=== PATIENT | female | born 1965 | race Two or more races ===

== ENCOUNTER 2021-09-12 07:37 | Inpatient (IN) | payer OTHER ==
[~2021-09-12] VITALS: Ht 157.5 cm; Wt 81.8 kg
[~2021-09-12 07:37] MED LIST: BISO5TAB8 PO; LOSA100T14 PO; OXYC1TAB15 PO; [UNRECOGNIZED DRUG - CODE] PO
[2021-09-12] MEDS ORDERED: IV NORMAL SALINE 1000ML BAG 1,000 ML IV ONE (08:00)
[2021-09-12] MEDS ORDERED: ONDANSETRON PF 4 MG/2 ML VIAL. IVP ONE ×3 (08:15→13:15)
[2021-09-12] MEDS ORDERED: fentaNYL PF VIAL 100 MCG/2 ML VIAL IV ONE ×2 (08:15→10:15)
[2021-09-12 08:41] LABS: BASO % 1 % (0-3); EOS # 0.2 x10^3/uL (0.0-0.7); EOS % 3 % (0-3); HEMOGLOBIN 13.2 g/dL (12.0-15.5); LYMPH # 1.4 x10^3/uL (1.0-4.8); LYMPH % 22 % (24-48); MEAN CORPUSCULAR HEMOGLOBIN 27 pg (25-35); MEAN CORPUSCULAR HGB CONC 33 g/dL (31-37); MEAN CORPUSCULAR VOLUME 82 fL (79-100); MONO # 0.6 x10^3/uL (0.0-1.1); MONO % 10 % (0-9); NEUT # 4.3 x10^3/uL (1.8-7.7); NEUT % 65 % (31-73); PLATELET COUNT 230 x10^3/uL (140-400); RED BLOOD COUNT 4.88 x10^6/uL (3.50-5.40); RED CELL DISTRIBUTION WIDTH 13.8 % (11.5-14.5); WHITE BLOOD COUNT 6.7 x10^3/uL (4.0-11.0)
[2021-09-12] MEDS ORDERED: IOHEXOL 300 MG/ML 100ML VIAL. IV ONE (09:00)
[2021-09-12] MEDS ORDERED: IOHEXOL 240 MG/ML 50ML VIAL. PO ONE (09:00)
--- NOTE | 2021-09-12 09:01 | PHYS DOC ---
Past Medical History Past Medical History: Hypothyroid, Pancreatitis Past Surgical History: Cholecystectomy, Hysterectomy, Other Additional Past Surgical Histo: THYROIDECTOMY, CHOLECYSTECTOMY 09/09/2021 Smoking Status: Never Smoker Alcohol Use: None Drug Use: None General Adult EDM: Chief Complaint: CHEST PAIN HPI: HPI: Patient is a 56 year old female who presents with abdominal pain since this morning. Patient recently underwent cholecystectomy at [facility] on 09/09/21. She had a normal post-operative course until this morning when she woke up with increased RUQ pain, nausea, and vomiting. Patient reports the pain radiates into her chest, back, and right shoulder. She has been eating/drinking normal since her surgery. Her last meal was yesterday afternoon (apple). She is not passing gas but had a bowel movement yesterday which she said was normal. Reports a sensation that she needs to belch but unable. Reports her pain as 9/10. Denies blood in the stool or diarrhea. Review of Systems: Review of Systems: Review of systems constitutional: Denies fever or chills Eyes: Denies redness or eye pain HENT: Denies nasal congestion or sore throat Respiratory: Denies cough or shortness of breath Cardiovascular: Reports chest pain; Denies palpitations GI: Reports abdominal pain, nausea, or vomiting; Denies melena or hematochezia : Denies dysuria or hematuria Musculoskeletal: Denies back pain or joint pain Integument: Denies rash or skin lesions Neurologic: Denies headache, focal weakness or sensory changes Complete systems were reviewed and found to be within normal limits, except as documented in this note. Heart Score: C/O Chest Pain: Yes HEART Score for Chest Pain: HEART Score for Chest Pain Response (Comments) Value History Slighlty/Non-Suspicious 0 ECG Normal 0 Age >45 - < 65 1 Risk Factors 1 or 2 Risk Factors 1 Total 2 Risk Factors: Risk Factors: DM, Current or recent (<one month) smoker, HTN, HLP, family history of CAD, obesity. Risk Scores: Score 0 - 3: 2.5% MACE over next 6 weeks - Discharge Home Score 4 - 6: 20.3% MACE over next 6 weeks - Admit for Clinical Observation Score 7 - 10: 72.7% MACE over next 6 weeks - Early Invasive Strategies Current Medications: Current Medications Medications (Trade) Dose Ordered Sig/González Start Time Stop Time Status Last Admin Dose Admin Fentanyl Citrate (Fentanyl 2ml Vial) 50 mcg 1X ONCE 09/12/21 08:15 09/12/21 08:26 DC Ondansetron HCl (Zofran) 4 mg 1X ONCE 09/12/21 08:15 09/12/21 08:26 DC Sodium Chloride 1,000 ml @ 1,000 mls/hr 1X ONCE 09/12/21 08:00 09/12/21 08:59 Allergies: Allergies: Allergies Coded Allergies Type Severity Reaction Last Updated Verified ampicillin Allergy Intermediate 09/12/21 Yes sulbactam Allergy Intermediate 09/12/21 Yes Physical Exam: PE: Constitutional: Well developed, well nourished, no acute distress, non-toxic appearance HENT: Normocephalic, atraumatic Eyes: PERRL, EOMI, injected conjunctiva, no discharge Neck: Normal range of motion, no tenderness, supple. Surgical scar on anterior neck. Lungs & Thorax: No respiratory distress, equal chest rise and fall Abdomen: Soft, mild distension. Tenderness to palpation in RUQ. + Feliciano's sign. Incision c/d/i. Skin: Warm, dry, no erythema, no rash Back: No tenderness, no CVA tenderness Extremities: No tenderness, ROM intact, no edema Neurologic: Alert and oriented X 3, normal motor function, normal sensory function, no focal deficits noted Psychologic: Affect normal, judgment normal Current Patient Data: Vital Signs: Vital Signs Date Time Temp Pulse Resp B/P (MAP) Pulse Ox O2 Delivery O2 Flow Rate FiO2 09/12/21 07:45 98.3 73 26 134/73 (93) 97 Room Air 98.3 EKG: EKG: @754. NSR @ 76/min. QRS: 94 ms. QT/QTc: 386/434. Single ST elevation in leads II and III. Will repeat ECG with cardiac enzymes. @853. NSR @62/min. QRS: 94 ms. QT/QTc: 426/435. T Wave inversions with prominent Q waves in lead III.[] Radiology/Procedures: Radiology/Procedures: [] Course & Med Decision Making: Course & Med Decision Making Pertinent Labs and Imaging studies reviewed. (See chart for details) This is a 56 y/o female that is presenting with new-onset abdominal pain foll owing a cholecystectomy at [facility] on 09/09/21. She had a normal post-operative course until this morning when she woke up with increased RUQ pain, nausea, and vomiting. Patient reports the pain radiates into her chest, back, and right shoulder. EKG/Cardic enzymes negative. Lipase negative. CT abdomen did not demonstrate acute findings. She was given IV Fentanyl/Dilaudid for intractable pain. Patient requiring admission for further evaluation and treatment of her intractable pain. Discussed with Dr. Mccann (surgeon) who is in agreement with consultation.. Patient requiring admission for further evaluation and treatment. Discussed with Dr. Hill (hospitalist) who is in agreement with admission. Discussed findings and plan with patient, who acknowledges understanding and agreement. Es Disclaimer: Es Disclaimer: This electronic medical record was generated, in whole or in part, using a voice recognition dictation system. Departure Departure Impression: Primary Impression: Intractable abdominal pain Additional Impressions: Intractable nausea and vomiting S/P laparoscopic cholecystectomy Disposition: ADMITTED INPATIENT Admitting Physician: DMITRY Miller) Condition: STABLE Referrals: NO PCP (PCP) KAJAL CHAVEZ DO Sep 12, 2021 09:01
[2021-09-12 09:39] LABS: BILIRUBIN,URINE NEGATIVE (NEG); CLARITY,URINE CLEAR; COLOR,URINE YELLOW; NITRITE,URINE NEGATIVE (NEG); PH,URINE 6.5 (<5.0-8.0); PROTEIN,URINE NEGATIVE (NEG-TRACE); UROBILINOGEN,URINE 0.2 mg/dL (0.2 mg/dL)
[2021-09-12 09:47] LABS: BACTERIA,URINE FEW /HPF (0-FEW)
[2021-09-12 10:28] LABS: CALCIUM 8.5 mg/dL (8.5-10.1); CREATININE 0.7 mg/dL (0.6-1.0); GFR 86.2; POTASSIUM 3.8 mmol/L (3.5-5.1)
[2021-09-12] MEDS ORDERED: HYDROmorphone 2 MG/ML INJ. IVP ONE ×2 (10:30→11:00)
[2021-09-12 10:35] LABS: ALBUMIN 3.9 g/dL (3.4-5.0); ALBUMIN/GLOBULIN RATIO 1.3 (1.0-1.7); MAGNESIUM 1.8 mg/dL (1.8-2.4); TOTAL BILIRUBIN 0.5 mg/dL (0.2-1.0)
[2021-09-12 10:57] LABS: CREATINE KINASE 55 U/L (26-192)
--- NOTE | 2021-09-12 11:32 | RAD ---
CT of the abdomen and pelvis with contrast 09/12/2021 11:25 AM Indication: Reason: Abdominal pain status post recent laparoscopic cholecystectomy Comparison study: CT abdomen and pelvis September 06, 2021 Technique: Multidetector CT imaging of the abdomen and pelvis was performed following the administrat ion of IV contrast. Findings: The partially visualized lung bases demonstrate no acute abnormality. The gallbladder is been removed in the interim. The liver, spleen, bilateral adrenal glands, bilatera l kidneys, and pancreas, are grossly unremarkable. There is no bowel obstruction. No evidence of acut e inflammatory change involving visualized bowel is identified. Small amount of free fluid noted in t he pelvis, not unexpected given recent surgery. No pneumoperitoneum is identified. Bladder is grossly unremarkable. No acute osseous changes are identified. Impression: 1. No evidence of acute intra-abdominal abnormality is identified. 2. Interval cholecystectomy 3. Small amount of free fluid seen in the pelvis, not unexpected given recent surgery CT DOSING PQRS STATEMENT: One or more of the following individualized dose reduction techniques were utilized for this examinat ion: 1. Automated exposure control 2. Adjustment of the mA and/or kV according to patient size 3. Use of iterative reconstruction technique Electronically signed by: Jason Reed MD (09/12/2021 11:30 AM) [id number]
[2021-09-12] MEDS ORDERED: ONDANSETRON PF 4 MG/2 ML VIAL. IVP PRN (14:00)
[2021-09-12] MEDS ORDERED: HYDROmorphone 2 MG/ML INJ. IVP PRN (14:00)
[2021-09-12] MEDS: IV NORMAL SALINE 1000ML BAG 1,000 ML IV SCH ×2 (14:18→17:56)
[2021-09-12] MEDS: MORPHINE SULFATE 2 MG/ML INJ. IVP PRN ×2 (17:07→21:55)
[2021-09-12 17:17] VITALS: BP 152/91
--- NOTE | 2021-09-12 18:06 | HP ---
DATE OF SERVICE: 09/12/2021 ADMIT DATE: 09/12/2021 CHIEF COMPLAINT: Chest pain, nausea, vomiting, abdominal pain. HISTORY OF PRESENT ILLNESS: The patient is a pleasant middle-aged female who we just discharged 2 days ago after a laparoscopic cholecystectomy. She presented with the above chief complaints. Basically, we did some labs and some imaging. Her workup was negative, but she has intractable nausea, vomiting, abdominal pain. I discussed the case with ER physician. We are going to admit the patient and consult her surgeon. PAST MEDICAL HISTORY: Recent laparoscopic cholecystectomy, hypothyroidism, pancreatitis, cholecystectomy, hysterectomy, thyroidectomy. ALLERGIES: AMPICILLIN AND SULBACTAM. FAMILY HISTORY: Diabetes. SOCIAL HISTORY: She does not drink, smoke or take drugs. MEDICATIONS: Reviewed. Please refer to the MRAD. REVIEW OF SYSTEMS: GENERAL: No history of weight change, weakness or fevers. SKIN: No bruising, hair changes or rashes. EYES: No blurred, double or loss of vision. NOSE AND THROAT: No history of nosebleeds, hoarseness or sore throat. HEART: No history of palpitations, chest pain or shortness of breath on exertion. LUNGS: Denies cough, hemoptysis, wheezing or shortness of breath. GASTROINTESTINAL: She complains of nausea, vomiting, abdominal pain. GENITOURINARY: No history of frequency, urgency, hesitancy or nocturia. NEUROLOGIC: Denies history of numbness, tingling, tremor or weakness. PSYCHIATRIC: No history of panic, anxiety or depression. ENDOCRINE: No history of heat or cold intolerance, polyuria or polydipsia. EXTREMITIES: Denies muscle weakness, joint pain, pain on walking or stiffness. PHYSICAL EXAMINATION: VITALS: Within normal limits and are stable. GENERAL: No apparent distress. Alert and oriented. HEENT: Normal cephalic atraumatic, external auditory canals are patent. EYES: Extraocular muscles are intact, pupils are equally round and reactive to light and accommodation. MUSCULOSKELETAL: Well developed, well nourished, good range of motion. ENDOCRINE: No thyromegaly was palpated. LYMPHATICS: No cervical chain or axillary nodes were noted. HEMATOPOIETIC: No bruising. NECK: Supple, no JVD, no thyromegaly was noted. LUNGS: Clear to auscultation in all lung perez without rhonchi or wheezing. HEART: RRR, S1, S2 present. Peripheral pulses intact, no obvious murmurs were noted. ABDOMEN: She has clean, dry, intact dressings. EXTREMITIES: Without any cyanosis, clubbing, or edema. Pedal pulses intact, Homans sign is negative. NEUROLOGIC: Normal speech, normal tone. A and O x 3, moves all extremities, no obvious focal deficits. PSYCHIATRIC: Normal affect, normal mood. Stable. SKIN: No ulcerations or rashes, good skin turgor, no jaundice. VASCULAR: Good capillary refill, neurovascular bundle appears to be intact. HEMATOLOGY: Normal. LABORATORY DATA: Electrolytes are normal other than a glucose of 118. Urinalysis is negative other than trace leukocyte esterase and 5-10 white cells. DIAGNOSTIC DATA: CT of the abdomen and pelvis showed no evidence of acute disease, small amount of fluid. ASSESSMENT AND PLAN: Intractable nausea, vomiting, abdominal pain after a recent laparoscopic cholecystectomy. The patient has been admitted. We will start IV fluids, p.r.n. morphine, p.r.n. Zofran. Home medications. Deep vein thrombosis prophylaxis. Full code. We will try clear liquid diet. Consult Dr. Mccann. ROSY/KAI DR: ROSY/geni TID: [id number]
[2021-09-12 19:00] VITALS: BP 115/57
[2021-09-13] MEDS: MORPHINE SULFATE 2 MG/ML INJ. IVP PRN (02:30)
--- NOTE | 2021-09-13 05:39 | EKG ---
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
--- NOTE | 2021-09-13 05:39 | EKG ---
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
[2021-09-13 07:00] VITALS: BP 106/72
[2021-09-13] MEDS: IV NORMAL SALINE 1000ML BAG 1,000 ML IV SCH ×3 (08:18→10:16)
[2021-09-13 11:00] VITALS: BP 114/65
--- NOTE | 2021-09-13 11:27 | NUR ---
SW following. Discussed with RN, pt from home, room air, NPO, COVID-19 negative. IV abx. PT/OT ordered. Surgery following. RN advised no SW needs at this time. SW will continue to follow.
[2021-09-13] MEDS ORDERED: ONDA4TAB12 PO (12:19)
--- NOTE | 2021-09-13 12:21 | PDOC3 ---
[facility]-Discharge Summary Date of Admission: Date of Admission: Sep 12, 2021 Date of Discharge: Date of Discharge: Sep 13, 2021 Admission Diagnosis: Problems: (1) Intractable abdominal pain (2) Intractable nausea and vomiting Hospital Course: Hospital Course: The patient is a pleasant middle-aged female who we just discharged 2 days ago after a laparoscopic cholecystectomy. She presented with the above chief complaints. Basically, we did some labs and some imaging. Her workup was negative, but she has intractable nausea, vomiting, abdominal pain. I discussed the case with ER physician. We are going to admit the patient and consult her surgeon. 09/13 Valuate examined patient at bedside. Symptoms improved and work-up overall qu ite negative. Okay for discharge today patient says she really needs to leave to take care of some personal matters okay to discharge today. Greater than 30 minutes spent on discharge. Disposition: Disposition/Orders: D/C to Home Activity: Activity: Resume previous activity Diet: Diet: Regular Medications: Home Meds Active Scripts Ondansetron (ONDANSETRON ODT) 4 Mg Tab.rapdis, 1 TAB PO PRN Q6-8HRS for n/v for 10 Days, #30 TAB Prov:ROHITH JOSHI MD 09/13/21 Oxycodone/Apap 5-325 (PERCOCET 5-325 MG TABLET ) 1 Each Tablet, 1 TAB PO PRN Q4HRS PRN for PAIN, #20 TAB 0 Refills Prov:GUSTAVO TALLEY HERBARIUM CURATOR 09/10/21 Reported Medications Levothyroxine Sodium (Euthyrox) 200 Mcg Tablet, 200 MCG PO DAILY for hypo thyroidism, TAB 09/06/21 Bisoprolol Fumarate (BISOPROLOL FUMARATE) 5 Mg Tablet, 1 TAB PO DAILY for HTN, #30 TAB 5 Refills 09/06/21 Losartan Potassium (LOSARTAN POTASSIUM) 100 Mg Tablet, 100 MG PO DAILY for HYPERTENSION, TAB 09/06/21 Scheduled Bisoprolol Fumarate (Bisoprolol Fumarate), 1 TAB PO DAILY, (Reported) Levothyroxine Sodium (Euthyrox), 200 MCG PO DAILY, (Reported) Losartan Potassium (Losartan Potassium), 100 MG PO DAILY, (Reported) Ondansetron (Ondansetron Odt), 1 TAB PO PRN Q6-8HRS Scheduled PRN Oxycodone/Apap 5-325 (Percocet 5-325 Mg Tablet ), 1 TAB PO PRN Q4HRS PRN for PAIN Justicifation of Admission Dx: Justifications for Admission: Justification of Admission Dx: Yes ROHITH JOSHI MD Sep 13, 2021 12:21
--- NOTE | 2021-09-13 12:31 | NUR ---
Discharge Note: KENNY OREILLY [address] Discharge instructions and discharge home medications reviewed with Patient and a copy given. All questions have been answered and understanding verbalized. The following instructions and handouts were given: follow up instructions Discontinued lines and drains: 20 guage right upper arm, tip intact. patient tolerated well. Patient discharged to home with self care via family.
--- NOTE | 2021-09-13 14:28 | PDOC ---
SURGICAL PROGRESS NOTE DATE: 09/13/21 TIME: 14:27 Subjective Patient was out of the room Vital Signs Vital Signs Date Time Temp Pulse Resp B/P (MAP) Pulse Ox O2 Delivery O2 Flow Rate FiO2 09/13/21 11:00 98.3 87 20 114/65 (81) 96 Room Air 98.3 09/12/21 21:55 1.0 I&O Intake and Output 09/13/21 07:00 Intake Total 1000 ml Output Total 0 ml Balance 1000 ml Intake IV Total 1000 ml Output Urine Total 0 ml # Voids 3 Labs Laboratory Tests Test 09/12/21 08:17 09/12/21 09:27 09/12/21 09:47 09/12/21 12:20 White Blood Count 6.7 x10^3/uL (4.0-11.0) Red Blood Count 4.88 x10^6/uL (3.50-5.40) Hemoglobin 13.2 g/dL (12.0-15.5) Hematocrit 40.0 % (36.0-47.0) Mean Corpuscular Volume 82 fL (79-100) Mean Corpuscular Hemoglobin 27 pg (25-35) Mean Corpuscular Hemoglobin Concent 33 g/dL (31-37) Red Cell Distribution Width 13.8 % (11.5-14.5) Platelet Count 230 x10^3/uL (140-400) Neutrophils (%) (Auto) 65 % (31-73) Lymphocytes (%) (Auto) 22 % (24-48) Monocytes (%) (Auto) 10 % (0-9) Eosinophils (%) (Auto) 3 % (0-3) Basophils (%) (Auto) 1 % (0-3) Neutrophils # (Auto) 4.3 x10^3/uL (1.8-7.7) Lymphocytes # (Auto) 1.4 x10^3/uL (1.0-4.8) Monocytes # (Auto) 0.6 x10^3/uL (0.0-1.1) Eosinophils # (Auto) 0.2 x10^3/uL (0.0-0.7) Basophils # (Auto) 0.0 x10^3/uL (0.0-0.2) Lactic Acid Level 1.4 mmol/L (0.4-2.0) Urine Collection Type Unknown Urine Color Yellow Urine Clarity Clear Urine pH 6.5 (<5.0-8.0) Urine Specific [place] 1.010 (1.000-1.030) Urine Protein Negative mg/dL (NEG-TRACE) Urine Glucose (UA) Negative mg/dL (NEG) Urine Ketones (Stick) Negative mg/dL (NEG) Urine Blood Trace (NEG) Urine Nitrite Negative (NEG) Urine Bilirubin Negative (NEG) Urine Urobilinogen Dipstick 0.2 mg/dL (0.2 mg/dL) Urine Leukocyte Esterase Trace (NEG) Urine RBC 1-2 /HPF (0-2) Urine WBC 5-10 /HPF (0-4) Urine Squamous Epithelial Cells Mod /LPF Urine Bacteria Few /HPF (0-FEW) Sodium Level 145 mmol/L (136-145) Potassium Level 3.8 mmol/L (3.5-5.1) Chloride Level 103 mmol/L (98-107) Carbon Dioxide Level 30 mmol/L (21-32) Anion Gap 12 (6-14) Blood Urea Nitrogen 8 mg/dL (7-20) Creatinine 0.7 mg/dL (0.6-1.0) Estimated GFR (Cockcroft-Gault) 86.2 BUN/Creatinine Ratio 11 (6-20) Glucose Level 118 mg/dL (70-99) Calcium Level 8.5 mg/dL (8.5-10.1) Magnesium Level 1.8 mg/dL (1.8-2.4) Total Bilirubin 0.5 mg/dL (0.2-1.0) Aspartate Amino Transf (AST/SGOT) 18 U/L (15-37) Alanine Aminotransferase (ALT/SGPT) 87 U/L (14-59) Alkaline Phosphatase 78 U/L (46-116) Creatine Kinase 55 U/L (26-192) Creatine Kinase MB (Mass) 0.5 ng/mL (0.0-3.6) Creatine Kinase MB Relative Index % (0-4) Troponin I High Sensitivity 8 ng/L (4-50) 7 ng/L (4-50) GU-Cae-M-Type Natriuretic Peptide 46 pg/mL (0-124) Total Protein 7.0 g/dL (6.4-8.2) Albumin 3.9 g/dL (3.4-5.0) Albumin/Globulin Ratio 1.3 (1.0-1.7) Lipase 64 U/L (73-393) Test 09/12/21 15:27 09/12/21 16:30 Coronavirus (COVID-19)(PCR) Not detected (NOT DETECTD) Troponin I High Sensitivity 8 ng/L (4-50) Laboratory Tests Test 09/12/21 15:27 09/12/21 16:30 Coronavirus (COVID-19)(PCR) Not detected (NOT DETECTD) Troponin I High Sensitivity 8 ng/L (4-50) Problem List Problems Medical Problems: (1) Intractable abdominal pain Status: Acute (2) Intractable nausea and vomiting Status: Acute Assessment/Plan Reviewed her labs and imaging does not appear to be a complication of surgery. We will follow-up with patient in a.m. might consider GI consult Justicifation of Admission Dx: Justifications for Admission: Justification of Admission Dx: Yes MURIEL REY MD Sep 13, 2021 14:28
== END 2021-09-13 12:32 | disposition home or self-care (01) | DRG 395 ==
LOC: ER 07:37 → 5 SOUTH 13:48
PROVIDERS: ADMIT Internal Medicine; ATTEND Internal Medicine
DX: K35.80 Unspecified acute appendicitis (principal); E89.0 Postprocedural hypothyroidism; R11.2 Nausea with vomiting, unspecified; Z20.822 Contact with and (suspected) exposure to COVID-19; Z83.3 Family history of diabetes mellitus; Z90.49 Acquired absence of other specified parts of digestive tract; Z90.710 Acquired absence of both cervix and uterus; Z88.1 Allergy status to other antibiotic agents
CPT/HCPCS: 36415; 74177; 80053; 81001; 82553; 83605; 83690; 83735; 83880; 84484; 85025; 87086; 93005; 96361; 96374; 96375; 96376; J1170; J1956; J2270; J2405; J3010; J7030; Q9966; Q9967; U0003; 99285-25; G0378